=== PATIENT | male | born 1975 | race Caucasian/White ===

== ENCOUNTER 2021-06-09 11:31 | Emergency (ER) | payer OTHER ==
[~2021-06-09] VITALS: Ht 193 cm; Wt 85.7 kg
[2021-06-09] MEDS ORDERED: CYCLOBENZAPRINE10 MG PO (13:26)
[2021-06-09] MEDS ORDERED: HYDROCODON-ACE1 EAC6 PO (13:26)
== END 2021-06-09 13:45 | disposition home or self-care (01) ==
LOC: FER 11:31
DX: S32.019A Unspecified fracture of first lumbar vertebra, initial encounter for closed fracture (principal); M51.37 Other intervertebral disc degeneration, lumbosacral region; W10.9XXA Fall (on) (from) unspecified stairs and steps, initial encounter; Z88.8 Allergy status to other drugs, medicaments and biological substances
CPT/HCPCS: 72131; J1100